=== PATIENT | female | born 1990 | race Caucasian/White ===

== ENCOUNTER 2021-07-16 00:38 | Emergency (ER) | payer OTHER ==
[2021-07-16 01:17] LABS: #Basophils 0.1 10x3/uL (0.0-0.2); #Eosinphils 0.1 10x3/uL (0.0-0.5); #Monocytes 0.3 10x3/uL (0.0-1.1); #Neutrophils 2.6 10x3/uL (1.5-8.4); %Basophils 0.8 % (0.0-2.0); %Eosinophils 0.8 % (0.0-6.0); %Lymphocytes 49.5 % (18.0-47.0); %Monocytes 5.5 % (0.0-10.0); %Neutrophils 43.1 % (40.0-75.0); Hemoglobin 13.8 g/dL (12.0-15.5); Mean Corpuscular HGB CONC 33.5 g/dL (32.0-36.0); Mean Corpuscular Hemoglobin 30.6 pg (27.0-33.0); Mean Corpuscular Volume 91.4 fl (81.6-98.3); Mean Platelet Volume 8.8 fl (7.4-10.4); Platelet Count 181 10x3/uL (150-450); RBC Distribution Width 12.1 % (11.5-14.5); Red Blood Cell (RBC) Count 4.51 10x6/uL (3.90-5.03)
[2021-07-16 01:27] LABS: ALT (SGPT) 39 U/L (8-55); AST (SGOT) 38 U/L (5-34); Albumin 4.9 g/dL (3.5-5.0); Alkaline Phosphatase 94 U/L (40-110); Anion Gap 17 mmol/L (10-20); BUN (Urea Nitrogen) 10 mg/dL (7.0-18.7); Bilirubin, Total 0.3 mg/dL (0.2-1.2); Calc. Creatinine Clearance 0 mL/min (70-130); Carbon Dioxide 27 mmol/L (22-29); Chloride 103 mmol/L (98-107); Globulin 3.5 g/dL (2.4-3.5); Glucose 89 mg/dL (70-105); Potassium 3.4 mmol/L (3.5-5.1); Protein, Total 8.4 g/dL (6.0-8.3); Sodium 144 mmol/L (136-145)
[2021-07-16] MEDS ORDERED: Lorazepam 2 MG/ML VIAL ONE (01:27)
[2021-07-16] MEDS ORDERED: levETIRAcetam in NS 100 ML ONE (01:28)
[2021-07-16 01:29] LABS: Acetaminophen Less than 6.0 mcg/mL (10.0-30.0); Alcohol 331 mg/dL (Less than 10); Magnesium 1.9 mg/dL (1.6-2.6); Salicylate Less than 8.0 mg/dL (15.0-30.0)
[2021-07-16 02:21] LABS: Pregu Control Background? CLEAR/WHITE (CLR/WHITE); Pregu Control Bar Appear? YES (CONTROL BAR); Specific Gravity 1.015 (1.002-1.036)
[2021-07-16 02:22] LABS: Pregnancy Test - Urine (BHCG) Negative (Negative)
[2021-07-16 02:28] LABS: Amphetamine Detected (NotDetected); Barbiturates Screen Not Detected (NotDetected); Benzodiazepine Screen Not Detected (NotDetected); Cocaine Metabolite Screen Not Detected (NotDetected); Methadone Not Detected (NotDetected); Methamphetamine Not Detected (NotDetected); Opiate Screen Not Detected (NotDetected); Oxycodone Screen Not Detected (NotDetected); Phencyclidine (PCP) Not Detected (NotDetected); THC/Cannabinoid Screen Not Detected (NotDetected); Tricyclic Screen Not Detected (NotDetected)
== END 2021-07-16 03:55 | disposition home or self-care (01) ==
LOC: CSHERS 00:38
DX: R56.9 Unspecified convulsions (principal); F10.129 Alcohol abuse with intoxication, unspecified; Y90.8 Blood alcohol level of 240 mg/100 ml or more
CPT/HCPCS: 36416; 70450; 80053; 80306; 80307; 81025; 83735; 84146; 85025; 93005; 96374; J1953; J2060

== ENCOUNTER 2021-07-26 23:44 | Emergency (ER) | payer OTHER ==
[2021-07-27 00:52] LABS: #Basophils 0.1 10x3/uL (0.0-0.2); #Eosinphils 0.1 10x3/uL (0.0-0.5); #Monocytes 0.9 10x3/uL (0.0-1.1); #Neutrophils 3.2 10x3/uL (1.5-8.4); %Basophils 0.9 % (0.0-2.0); %Eosinophils 1.6 % (0.0-6.0); %Lymphocytes 37.7 % (18.0-47.0); %Monocytes 12.6 % (0.0-10.0); %Neutrophils 47.1 % (40.0-75.0); Hemoglobin 12.5 g/dL (12.0-15.5); Mean Corpuscular HGB CONC 34.5 g/dL (32.0-36.0); Mean Corpuscular Hemoglobin 31.3 pg (27.0-33.0); Mean Corpuscular Volume 90.5 fl (81.6-98.3); Mean Platelet Volume 9.3 fl (7.4-10.4); Platelet Count 243 10x3/uL (150-450); RBC Distribution Width 12.4 % (11.5-14.5); White Blood Cell (WBC) Count 6.7 10x3/uL (3.5-10.5)
[2021-07-27 01:01] LABS: BHCG - Serum Negative (NEGATIVE); Pregs Control Background? CLEAR/WHITE (CLR/WHITE); Pregs Control Bar Appear? YES (CONTROL BAR)
[2021-07-27 01:09] LABS: ALT (SGPT) 24 U/L (8-55); AST (SGOT) 20 U/L (5-34); Albumin 4.5 g/dL (3.5-5.0); Alcohol 200 mg/dL (Less than 10); Alkaline Phosphatase 78 U/L (40-110); Anion Gap 15 mmol/L (10-20); BUN (Urea Nitrogen) 10 mg/dL (7.0-18.7); Bilirubin, Total 0.2 mg/dL (0.2-1.2); Calc. Creatinine Clearance 0 mL/min (70-130); Carbon Dioxide 22 mmol/L (22-29); Chloride 109 mmol/L (98-107); Globulin 2.7 g/dL (2.4-3.5); Glucose 82 mg/dL (70-105); Potassium 3.3 mmol/L (3.5-5.1); Protein, Total 7.2 g/dL (6.0-8.3); Sodium 143 mmol/L (136-145)
[2021-07-27] MEDS ORDERED: SODIUM CHLORIDE IVPB SCH (01:15)
[2021-07-27] MEDS ORDERED: ADMIXTURE FEE IVPB SCH (01:15)
[2021-07-27] MEDS ORDERED: LEVETIRACETAM IVPB SCH (01:15)
[2021-07-27 01:25] LABS: Microcytosis SLIGHT = 6-15 cells (100X) (0-5/hpf); Polychromasia SLIGHT = 2-3 cells (100X) (0-2/hpf)
[2021-07-27 01:34] LABS: Platelet Clumps SLIGHT
[2021-07-27 02:17] LABS: Bilirubin Neg (Negative); Blood, Urine Negative (Negative); Clarity Clear (Clear); Glucose, Urine (Dipstick) Normal (Negative); Ketone, Urine Negative (Negative); Leukocyte Negative (Negative); Nitrite Negative (Negative); Protein, Urine (Dipstick) Negative (Neg-Trace); Specific Gravity, Urine 1.015 (1.002-1.036); Urobilinogen Normal mg/dL (Less than 2)
[2021-07-27 02:25] LABS: Amphetamine Detected (NotDetected); Barbiturates Screen Not Detected (NotDetected); Benzodiazepine Screen Not Detected (NotDetected); Cocaine Metabolite Screen Not Detected (NotDetected); Methadone Not Detected (NotDetected); Methamphetamine Not Detected (NotDetected); Opiate Screen Not Detected (NotDetected); Oxycodone Screen Not Detected (NotDetected); Phencyclidine (PCP) Not Detected (NotDetected); THC/Cannabinoid Screen Detected (NotDetected); Tricyclic Screen Not Detected (NotDetected)
[2021-07-27] MEDS ORDERED: Ketorolac Tromethamine 30 MG/ML VIAL ONE (02:50)
[2021-07-27] MEDS ORDERED: Metoclopramide HCl 10 MG/2 ML VIAL ONE (02:50)
[2021-07-27] MEDS ORDERED: diphenhydrAMINE 50 MG/ML VIAL ONE (02:50)
== END 2021-07-27 02:59 | disposition home or self-care (01) ==
LOC: CSHERS 23:44
DX: R56.9 Unspecified convulsions (principal)
CPT/HCPCS: 71045; 80053; 80306; 80307; 81003; 84146; 84703; 85025; 93005; 93010; 96365; 96375; J1200; J1885; J1953; J2765; J7050

== ENCOUNTER 2021-08-09 14:21 | Outpatient (CLI) | payer OTHER | END 2021-08-09 14:22 | disposition home or self-care (01) | LOC: CSHMRI 14:21 | PROVIDERS: ATTEND Family Medicine | DX: R56.9 Unspecified convulsions (principal) | CPT/HCPCS: 70553 ==

== ENCOUNTER 2022-06-02 16:52 | Emergency (ER) | payer OTHER ==
[2022-06-02] MEDS ORDERED: Bupivacaine 0.25% HCL 30 ML VIAL ONE (17:19)
[2022-06-02] MEDS ORDERED: Lidocaine 1% (PF) 30 ML VIAL ONE (17:19)
[2022-06-02] MEDS ORDERED: Bupivacaine PF 0.5% 30 ML VIAL ONE (17:21)
[2022-06-02] MEDS ORDERED: Boostrix 0.5 ML (Tdap) VIAL (>/=7 yrs of age) ONE (17:31)
[2022-06-02] MEDS ORDERED: Bacitracin 1 PK ONE (18:17)
== END 2022-06-02 18:20 | disposition home or self-care (01) ==
LOC: CSHERS 16:52
DX: S61.217A Laceration without foreign body of left little finger without damage to nail, initial encounter (principal); I10 Essential (primary) hypertension; Z23 Encounter for immunization; W26.0XXA Contact with knife, initial encounter
CPT/HCPCS: 12002; 90471; 90715; J2001; S0020

== ENCOUNTER 2022-07-20 18:38 | Emergency (ER) | payer OTHER ==
[2022-07-20] MEDS ORDERED: Ketorolac Tromethamine 30 MG/ML VIAL ONE (20:11)
== END 2022-07-20 21:44 | disposition home or self-care (01) ==
LOC: CSHERS 18:38
DX: M79.652 Pain in left thigh (principal); M79.661 Pain in right lower leg
CPT/HCPCS: 36415; 82550; 96372; J1885

== ENCOUNTER 2023-04-24 08:58 | Emergency (ER) | payer SELFPAY ==
[2023-04-24 09:35] LABS: Bilirubin Neg (Negative); Blood, Urine 250 (Negative); Clarity Cloudy (Clear); Glucose, Urine (Dipstick) Normal (Negative); Ketone, Urine 5 mg/dL (Negative); Leukocyte 25 (Negative); Nitrite Negative (Negative); Protein, Urine (Dipstick) 100 mg/dl (Neg-Trace); Specific Gravity, Urine 1.025 (1.005-1.030)
[2023-04-24 09:38] LABS: Pregnancy Test - Urine (BHCG) Negative (Negative); Pregu Control Background? CLEAR/WHITE (CLR/WHITE); Pregu Control Bar Appear? YES (CONTROL BAR); Specific Gravity 1.025 (1.002-1.036)
[2023-04-24 09:40] LABS: Bacteria/HPF Rare-Few HPF (None Seen); CAUTI Indications for Culture Pelvic or flank pain; RBC/HPF Greater than 50 HPF (0-3); Squamous Epithelial 0-3 HPF (0-3); WBC/HPF 0-3 HPF (0-3)
[2023-04-24 09:42] LABS: Urine Culture Reflex No No
[2023-04-24 10:03] LABS: Hematocrit 39.5 % (34.9-44.5); Hemoglobin 13.8 g/dL (12.0-15.5); Mean Corpuscular HGB CONC 34.9 g/dL (32.0-36.0); Mean Corpuscular Hemoglobin 30.5 pg (27.0-33.0); Mean Corpuscular Volume 87.4 fl (81.6-98.3); Platelet Count 242 10x3/uL (130-400); RBC Distribution Width 12.4 % (11.5-14.5); Red Blood Cell (RBC) Count 4.52 10x6/uL (3.90-5.03)
[2023-04-24 10:04] LABS: %Basophils 0.6 % (0.0-2.0); %Eosinophils 0.1 % (0.0-6.0); %Lymphocytes 15.8 % (18.0-47.0); %Monocytes 2.9 % (0.0-10.0); %Neutrophils 80.3 % (40.0-75.0)
[2023-04-24 10:05] LABS: #Basophils 0.1 10x3/uL (0.0-0.2); #Monocytes 0.3 10x3/uL (0.0-1.1)
[2023-04-24 10:37] LABS: Carbon Dioxide 20 mmol/L (22-29); Chloride 108 mmol/L (98-107); Potassium 3.7 mmol/L (3.5-5.1); Sodium 144 mmol/L (136-145)
[2023-04-24 10:38] LABS: ALT (SGPT) 17 U/L (8-55); AST (SGOT) 24 U/L (5-34); Albumin 4.7 g/dL (3.5-5.0); Alkaline Phosphatase 63 U/L (40-110); Anion Gap 20 mmol/L (10-20); BUN (Urea Nitrogen) 12 mg/dL (7.0-18.7); Bilirubin, Total 0.3 mg/dL (0.2-1.2); Calc. Creatinine Clearance 0 mL/min (70-130); Estimated GFR 115; Globulin 2.7 g/dL (2.4-3.5); Glucose 102 mg/dL (70-105); Protein, Total 7.4 g/dL (6.0-8.3)
[2023-04-24] MEDS ORDERED: Ondansetron ODT 4 MG TAB ONE (10:54)
[2023-04-24] MEDS ORDERED: Ketorolac Tromethamine 30 MG/ML VIAL ONE (10:55)
== END 2023-04-24 14:36 | disposition home or self-care (01) ==
LOC: CSHERS 08:58
DX: N92.0 Excessive and frequent menstruation with regular cycle (principal); R11.10 Vomiting, unspecified; I10 Essential (primary) hypertension
CPT/HCPCS: 76856; 80053; 81001; 81025; 85025; 96372; J1885; Q0162

== ENCOUNTER 2024-08-25 07:16 | Inpatient (IN) | payer SELFPAY ==
[2024-08-25] MEDS ORDERED: Ondansetron PF 4 MG/2 ML Vial ONE (07:52)
[2024-08-25 08:33] LABS: #Basophils 0.09 10x3/uL (0.0-0.2); #Eosinophils 0.11 10x3/uL (0.0-0.5); #Monocytes 0.38 10x3/uL (0.0-1.1); #Neutrophils 10.49 10x3/uL (1.5-8.4); %Basophils 0.7 % (0.0-2.0); %Eosinophils 0.9 % (0.0-6.0); %Lymphocytes 12.2 % (18.0-47.0); Hematocrit 45.2 % (34.9-44.5); Hemoglobin 16.8 g/dL (12.0-15.5); Mean Corpuscular HGB CONC 37.2 g/dL (32.0-36.0); Mean Corpuscular Hemoglobin 31.3 pg (27.0-33.0); Mean Corpuscular Volume 84.2 fL (81.6-98.3); Mean Platelet Volume 9.3 fL (7.4-10.4); Platelet Count 164 10x3/uL (150-450); RBC Distribution Width 12.1 % (11.5-14.5); Red Blood Cell (RBC) Count 5.37 10x6/uL (3.90-5.03); White Blood Cell (WBC) Count 12.6 10x3/uL (3.5-10.5)
[2024-08-25 08:49] LABS: BHCG - Serum Negative (NEGATIVE); Pregs Control Background? CLEAR/WHITE (CLR/WHITE); Pregs Control Bar Appear? YES (CONTROL BAR)
[2024-08-25 08:58] LABS: ALT (SGPT) 247 U/L (8-55); AST (SGOT) 684 U/L (5-34); Albumin 4.1 g/dL (3.5-5.0); Alkaline Phosphatase 176 U/L (40-110); Anion Gap 31 mmol/L (10-20); BUN (Urea Nitrogen) 11 mg/dL (7.0-18.7); Bilirubin, Total 2.1 mg/dL (0.2-1.2); Calc. Creatinine Clearance 0 mL/min (70-130); Calcium 8.7 mg/dL (7.8-10.44); Carbon Dioxide 11 mmol/L (22-29); Chloride 94 mmol/L (98-107); Estimated GFR 105; Globulin 4.2 g/dL (2.4-3.5); Glucose 116 mg/dL (70-105); Lipase 791 U/L (8-78); Protein, Total 8.3 g/dL (6.0-8.3); Sodium 133 mmol/L (136-145)
[2024-08-25 09:04] LABS: Troponin I Less than 0.010 ng/mL (< 0.028)
[2024-08-25] MEDS ORDERED: Morphine 4 MG/ML VIAL ONE (09:39)
[2024-08-25 09:59] LABS: Bilirubin 1+ (Negative); Blood, Urine 250 (Negative); Clarity Cloudy (Clear); Glucose, Urine (Dipstick) Normal (Negative); Ketone, Urine 50 mg/dL (Negative); Leukocyte 25 (Negative); Nitrite Negative (Negative); Protein, Urine (Dipstick) 30 mg/dl (Neg-Trace); Specific Gravity, Urine 1.015 (1.005-1.030); pH, Urine 6.5 (5.0-9.0)
[2024-08-25 10:18] LABS: Bacteria/HPF 3+ HPF (None Seen); CAUTI Indications for Culture Pelvic or flank pain; WBC/HPF 0-3 HPF (0-3)
[2024-08-25 10:19] LABS: Urine Culture Reflex No No
[2024-08-25] MEDS ORDERED: Piperacillin/Tazobactam 4.5 GM VIAL ONE (10:26)
[2024-08-25] MEDS ORDERED: Acetaminophen 325 MG TAB PO PRN (11:07)
[2024-08-25] MEDS ORDERED: Ondansetron ODT 4 MG TAB PO PRN (11:25)
[2024-08-25] MEDS ORDERED: Electrolyte Replacement Protocol 1 EACH FS SCH (11:30)
[2024-08-25] MEDS ORDERED: Thiamine HCl 200 MG/2 ML VIAL ONE (11:51)
[2024-08-25 12:07] LABS: Magnesium 1.3 mg/dL (1.6-2.6)
[2024-08-25] MEDS ORDERED: Ketorolac Tromethamine 30 MG (1 mL) VIAL IVP PRN (13:14)
[2024-08-25] MEDS: Morphine 4 MG/ML VIAL SLOW IVP PRN (13:16)
[2024-08-25] MEDS: Ondansetron PF 4 MG/2 ML Vial IVP PRN (13:18)
[2024-08-25] MEDS: Pantoprazole 40 MG VIAL IVP SCH (13:18)
[2024-08-25] MEDS: Multivit, Therapeutic 1 TAB PO SCH (13:19)
[2024-08-25] MEDS: Folic Acid 1 MG TAB PO SCH (13:19)
[2024-08-25 13:29] VITALS: BMI 25.7
[2024-08-25] MEDS: Sodium Chloride 0.9% 1,000 ML IV SCH (15:26)
[2024-08-25] MEDS: Magnesium 2 GM/50 ML(in water) 2 GM in Premix 1 BAG IVPB SCH (15:26)
[2024-08-25] MEDS: Potassium Chloride 20 MEQ TAB PO SCH (15:26)
[2024-08-25] MEDS: Lorazepam 1 MG TAB PO PRN (15:43)
[2024-08-25] MEDS: diphenhydrAMINE 12.5 MG/5 ML UDCUP PO SCH (21:02)
[2024-08-25] MEDS: Senokot S 8.6-50 MG TAB PO SCH (22:22)
[2024-08-26] MEDS: Lorazepam 2 MG/ML VIAL IM PRN (02:18)
[2024-08-26 05:15] LABS: Platelet Count 101 10x3/uL (150-450)
[2024-08-26 05:16] LABS: #Basophils 0.02 10x3/uL (0.0-0.2); #Eosinophils 0.01 10x3/uL (0.0-0.5); #Monocytes 0.22 10x3/uL (0.0-1.1); #Neutrophils 6.69 10x3/uL (1.5-8.4); %Basophils 0.2 % (0.0-2.0); %Eosinophils 0.1 % (0.0-6.0); %Lymphocytes 16.5 % (18.0-47.0); %Monocytes 2.6 % (0.0-10.0); %Neutrophils 80.4 % (40.0-75.0); Hematocrit 36.9 % (34.9-44.5); Hemoglobin 12.8 g/dL (12.0-15.5); Mean Corpuscular HGB CONC 34.7 g/dL (32.0-36.0); Mean Corpuscular Hemoglobin 30.5 pg (27.0-33.0); Mean Corpuscular Volume 87.9 fL (81.6-98.3); Mean Platelet Volume 9.5 fL (7.4-10.4); RBC Distribution Width 12.2 % (11.5-14.5); White Blood Cell (WBC) Count 8.3 10x3/uL (3.5-10.5)
[2024-08-26 05:20] LABS: ALT (SGPT) 121 U/L (8-55); AST (SGOT) 199 U/L (5-34); Albumin 2.8 g/dL (3.5-5.0); Alkaline Phosphatase 109 U/L (40-110); Anion Gap 13 mmol/L (10-20); BUN (Urea Nitrogen) 4 mg/dL (7.0-18.7); Bilirubin, Total 1.7 mg/dL (0.2-1.2); Calc. Creatinine Clearance 148 mL/min (70-130); Calcium 6.7 mg/dL (7.8-10.44); Carbon Dioxide 21 mmol/L (22-29); Chloride 106 mmol/L (98-107); Critical Call Chemistry NUR.RAF@0518/JG2/WITHREADBACK; Estimated GFR 121; Globulin 2.3 g/dL (2.4-3.5); Glucose 112 mg/dL (70-105); Magnesium 2.2 mg/dL (1.6-2.6); Potassium 3.6 mmol/L (3.5-5.1); Protein, Total 5.1 g/dL (6.0-8.3); Sodium 136 mmol/L (136-145)
[2024-08-26 05:51] LABS: Platelet Adequacy Comment Appears Decreased; RBC Morph Comment Within Normal Limits
[2024-08-26] MEDS: Calcium Gluconate 4.6 MEQ in Sodium Chloride 0.9% 100 ML IVPB SCH (06:48)
[2024-08-26] MEDS: Enoxaparin 40 MG (0.4 mL) SYRINGE SC SCH (08:25)
[2024-08-26] MEDS: Senokot S 8.6-50 MG TAB PO SCH (08:26)
[2024-08-26] MEDS: Multivit, Therapeutic 1 TAB PO SCH (08:26)
[2024-08-26] MEDS: Folic Acid 1 MG TAB PO SCH (08:26)
[2024-08-26] MEDS ORDERED: Multivit, Therapeutic 1 TAB PO SCH (09:00)
[2024-08-26] MEDS: Thiamine HCl 200 MG/2 ML VIAL SLOW IVP SCH (11:06)
[2024-08-26] MEDS: Polyethylene Glycol 3350 17 GM Packet PO PRN (16:02)
[2024-08-26] MEDS: Lorazepam 1 MG TAB PO PRN (16:16)
[2024-08-26] MEDS: Lorazepam 2 MG/ML VIAL SLOW IVP PRN (22:20)
[2024-08-27] MEDS ORDERED: Senokot 8.6 MG TAB PO SCH (00:30)
[2024-08-27] MEDS: Zolpidem Tartrate 5 MG TAB PO SCH (00:43)
[2024-08-27] MEDS: Bisacodyl 5 MG TAB PO SCH (00:43)
[2024-08-27] MEDS: Diazepam 10 MG/2 ML SYRINGE IM SCH (05:25)
[2024-08-27 05:28] LABS: #Basophils 0.02 10x3/uL (0.0-0.2); #Eosinophils 0.03 10x3/uL (0.0-0.5); #Monocytes 0.41 10x3/uL (0.0-1.1); #Neutrophils 6.19 10x3/uL (1.5-8.4); %Basophils 0.3 % (0.0-2.0); %Eosinophils 0.4 % (0.0-6.0); %Lymphocytes 15.8 % (18.0-47.0); %Monocytes 5.2 % (0.0-10.0); %Neutrophils 77.9 % (40.0-75.0); Hematocrit 32.9 % (34.9-44.5); Hemoglobin 11.9 g/dL (12.0-15.5); Mean Corpuscular HGB CONC 36.2 g/dL (32.0-36.0); Mean Corpuscular Hemoglobin 32.1 pg (27.0-33.0); Mean Corpuscular Volume 88.7 fL (81.6-98.3); Mean Platelet Volume 9.8 fL (7.4-10.4); Platelet Count 63 10x3/uL (150-450); RBC Distribution Width 12.3 % (11.5-14.5); Red Blood Cell (RBC) Count 3.71 10x6/uL (3.90-5.03); White Blood Cell (WBC) Count 8.1 10x3/uL (3.5-10.5)
[2024-08-27 05:29] LABS: ALT (SGPT) 98 U/L (8-55); AST (SGOT) 119 U/L (5-34); Albumin 2.8 g/dL (3.5-5.0); Alkaline Phosphatase 102 U/L (40-110); Anion Gap 13 mmol/L (10-20); BUN (Urea Nitrogen) Less than 4 mg/dL (7.0-18.7); Bilirubin, Total 1.8 mg/dL (0.2-1.2); Calc. Creatinine Clearance 172 mL/min (70-130); Calcium 7.8 mg/dL (7.8-10.44); Carbon Dioxide 21 mmol/L (22-29); Chloride 104 mmol/L (98-107); Estimated GFR 126; Globulin 2.9 g/dL (2.4-3.5); Glucose 112 mg/dL (70-105); Protein, Total 5.7 g/dL (6.0-8.3); Sodium 135 mmol/L (136-145)
[2024-08-27] MEDS ORDERED: Diazepam 10 MG/2 ML SYRINGE IM SCH (05:30)
[2024-08-27 05:58] LABS: Platelet Adequacy Comment Platelets Decreased; RBC Morph Comment Within Normal Limits
[2024-08-27 08:14] VITALS: BP 142/104; TEMP 98.7
[2024-08-27] MEDS: Potassium Chloride 20 MEQ TAB PO SCH (09:10)
[2024-08-27] MEDS ORDERED: Potassium Chloride 20 MEQ TAB PO SCH (09:30)
[2024-08-27] MEDS ORDERED: chlordiazePOXIDE HCl 25 MG CAP PO SCH (09:30)
[2024-08-27] MEDS ORDERED: Lorazepam 1 MG TAB PO PRN (11:26)
[2024-08-28] MEDS ORDERED: Enoxaparin 40 MG (0.4 mL) SYRINGE SC SCH (09:00)
[2024-08-28] MEDS ORDERED: Lorazepam 0.5 MG TAB PO PRN (11:26)
[2024-08-28] MEDS ORDERED: Thiamine 100 MG TAB PO SCH (11:30)
== END 2024-08-27 11:00 | disposition home or self-care (01) | DRG 438 ==
LOC: CSHERS 07:16 → CSHTELE 12:51
PROVIDERS: ADMIT Internal Medicine; ATTEND Internal Medicine
DX: K85.20 Alcohol induced acute pancreatitis without necrosis or infection (principal); U07.1 COVID-19; E87.20 Acidosis, unspecified; I10 Essential (primary) hypertension; R56.9 Unspecified convulsions; F41.9 Anxiety disorder, unspecified; F32.A Depression, unspecified; Z79.899 Other long term (current) drug therapy
CPT/HCPCS: 36415; 74177; 76705; 80053; 81001; 83605; 83690; 83735; 84484; 84703; 85025; 87040; 93005; 96361; 96365; 96375; J0612; J1650; J2060; J2272; J2405; J2470; J2543; J3360; J3411; J3475; J7030; Q0163